=== PATIENT | male | born 1980 | race Caucasian/White ===

== ENCOUNTER 2024-06-25 14:41 | Emergency (ER) | payer MEDICAID ==
[~2024-06-25] VITALS: Ht 167.6 cm; Wt 77.1 kg
[2024-06-25 14:50] VITALS: BP_SYST 153; PULSE 72; RESP 18; TEMP 98.5; O2SAT 98
[2024-06-25] MEDS ORDERED: PRED50TA PO (15:11)
[2024-06-25] MEDS ORDERED: IBUP-1969 PO (15:11)
[2024-06-25 15:41] VITALS: BP_SYST 153; PULSE 72; RESP 18; TEMP 98.5; O2SAT 98
== END 2024-06-25 15:41 | disposition home or self-care (01) ==
LOC: SED 14:41
DX: G62.9 Polyneuropathy, unspecified (principal); M25.512 Pain in left shoulder; M25.511 Pain in right shoulder; M79.601 Pain in right arm; R20.2 Paresthesia of skin; Z79.899 Other long term (current) drug therapy; Z79.2 Long term (current) use of antibiotics
CPT/HCPCS: 99283